=== PATIENT | male | born 1980 | race African-American/Black ===

== ENCOUNTER → 2020-01-02 | Outpatient (CLI) | payer OTHER ==
--- NOTE | 2020-01-02 15:26 | Diagnostic Imaging Report ---
EXAM: Penile ultrasound INDICATION: ^[id number] ^[id number] ^PENILE ULTRASOUND; INDURATION PENIS PLASTICA COMPARISON: None TECHNIQUE: Banks scale, color Doppler images of the penis and color doppler images of the testicles were obtained. FINDINGS: Normal symmetric blood flow to both testicles. Sonographic evaluation of the penis demonstrates no definite calcification or plaques of the tunica albuginea. No mass, fluid collection, or soft tissue abnormality. IMPRESSION: No calcification or plaque to correlate with provided clinical history of Peyronie disease. Signed by: Mali Campbell MD on 01/02/2020 3:23 PM
== END ==
LOC: US 12-24 13:11
PROVIDERS: ATTEND Urology
DX: N48.6 Induration penis plastica (principal)
CPT/HCPCS: 76882